=== PATIENT | female | born 1940 | race Caucasian/White ===

== ENCOUNTER → 2024-03-05 12:47 | Outpatient (REF) | payer MEDICARE, OTHER, SELFPAY | LOC: EMG 12:47 | PROVIDERS: ATTENDING PHYSICIAN Orthopaedic Surgery; FAMILY PHYSICIAN Family Medicine | DX: R20.0 Anesthesia of skin (principal); G56.02 Carpal tunnel syndrome, left upper limb | CPT/HCPCS: 95886; 95909 ==

== ENCOUNTER → 2024-03-24 13:39 | Outpatient (REF) | payer MEDICARE, OTHER, SELFPAY ==
[2024-03-24 14:52] LABS: % Basophils 0.5 % (0-2); % Eosinophils 3.1 % (0-6); % Immature Granulocytes 1.4 % (0-0.5); % Lymphocytes 29.6 % (20.5-51.1); % Monocytes 10.3 % (1.7-9.3); % Neutrophils 55.1 % (42.2-75.2); Absolute Eosinophils 0.2 10^3/uL (0-0.7); Absolute Immature Granulocytes 0.1 10^3/uL (0-0.05); Absolute Lymphocytes 2.2 10^3/uL (1.2-3.4); Absolute Monocytes 0.8 10^3/uL (0.1-0.6); Absolute Neutrophils 4.1 10^3/uL (1.4-6.5); Hematocrit 41.9 % (37.0-47.0); Mean Corp Hgb Conc. 33.4 g/dL (33.0-37.0); Mean Corpuscular Hgb 31.5 pg (27.0-31.0); Mean Corpuscular Volume 94.2 fL (81.0-99.0); Mean Platelet Volume 10.8 fL (7.4-10.4); Nucleated Red Blood Cells % 0 %; Platelet Count 237 10^3/uL (130-400); Red Blood Cell Count 4.45 10^6/uL (4.20-5.40); Red Cell Dist. Width 13.2 % (11.5-14.5); White Blood Cell Count 7.4 10^3/uL (4.8-10.8)
[2024-03-24 15:09] LABS: Blood Urea Nitrogen 21 mg/dl (7-17); Calcium 9.5 mg/dl (8.4-10.2); Carbon Dioxide 24 mmol/L (22-30); Chloride 103 mmol/L (98-107); Glucose 133 mg/dl (70-99); Potassium 4.1 mmol/L (3.5-5.1); Sodium 137 mmol/L (135-145); eGFR > 60.00
== END ==
LOC: REG 13:39
PROVIDERS: ATTENDING PHYSICIAN Orthopaedic Surgery; FAMILY PHYSICIAN Family Medicine
DX: Z01.818 Encounter for other preprocedural examination (principal)
CPT/HCPCS: 36415; 80048; 85025; 93005

== ENCOUNTER → 2024-10-29 10:45 | Outpatient (REF) | payer MEDICARE, OTHER, SELFPAY | LOC: HWRAD 10:45 | PROVIDERS: ATTENDING PHYSICIAN Student in an Organized Health Care Education/Training Program; FAMILY PHYSICIAN Family Medicine | DX: Z96.661 Presence of right artificial ankle joint (principal) | CPT/HCPCS: 73700 ==

== ENCOUNTER 2024-12-15 15:02 | Inpatient (IN) | payer MEDICARE, OTHER, SELFPAY ==
--- NOTE | 2024-11-21 15:38 | CM ---
Cm spoke with patient via phone. COnfirmed demographics. Patient lives independently. Patient stated that she does not have a history of VN, SNF or DME. Patient is active with her PCP. Patient uses [facility] for medication services.
Patient stated that she will not have assistance in the home post operatively and would prefer SNF. Patient stated that she would like to go to [facility], [facility] or [facility]. CM sent preliminary referral via [facility].
PLAN: SNF
[2024-11-28 08:53] LABS: Hematocrit 42.5 % (37.0-47.0); Hemoglobin 14.3 g/dL (12.0-16.0); Mean Corp Hgb Conc. 33.6 g/dL (33.0-37.0); Mean Corpuscular Volume 95.5 fL (81.0-99.0); Platelet Count 220 10^3/uL (130-400); Red Cell Dist. Width 13.1 % (11.5-14.5)
[2024-11-28 09:28] LABS: Blood Urea Nitrogen 18 mg/dl (7-17); Calcium 9.5 mg/dl (8.4-10.2); Carbon Dioxide 28 mmol/L (22-30); Chloride 108 mmol/L (98-107); Glucose 100 mg/dl (70-99); Potassium 4.8 mmol/L (3.5-5.1); Sodium 141 mmol/L (135-145); eGFR > 60.00
[2024-11-28 14:02] VITALS: BMI 27.9
[2024-12-08 12:18] VITALS: BMI 27.9
[2024-12-15] VITALS (11 sets, daily range): BP systolic 119–152; BP diastolic 62–85; PULSE 66; BMI 27.9
[2024-12-15] MEDS: CELEBREX 200 MG PO (15:32)
[2024-12-15] MEDS: TYLENOL 1000 MG PO (15:32)
[2024-12-15] MEDS: NORMOSOL-R/PLASMALYTE-A 1000 IV (15:44)
[2024-12-15] MEDS: TRANSDERM-SCOP 1 PATCH TRANSDERM (15:52)
[2024-12-15] MEDS: VANCOCIN 200 IV (15:53)
--- NOTE | 2024-12-15 21:15 | W.PN.UPDATE ---
Update Note
Progress Note Update
84F s/p right TAR revision, MARTA.
- admit to hospitalist
- Strict NWB RLE
- patient will likely need rehab placement
- PT/OT
- resume diet
- postop analgesia
- Ancef sx ppx 24hrs postop
- resume diet
- will reassess on AM rounds
[2024-12-15] MEDS: COMPAZINE 5 MG IV (21:28)
--- NOTE | 2024-12-15 22:16 | HPS.HSE ---
Family Physician
-
Family Physician: Marlen Abraham
Chief Complaint
-
R Ankle Pain
History of Present Illness
Patient is an 84y F with PMH significant for COPD, CVA / TIA and hypothyroidism who presents to for R ankle arthroplasty revision. Patient had initial R ankle arthroplasty about 7 years ago. Patient was seen and examined in the PACU after
surgery. No complications noted. Patient is awake if somewhat confused post-op. She denies any chest pain or dyspnea. She feels that her had is 'heavy'. She denies any recent illness, fevers / chills, cough, etc.
Medical History
Past Medical History
Past Medical History: Reports Other
Additional Past Medical History:
COPD
Hypothyroidism
Prior CVA / TIA
DJD
Neuropathy
Past Surgical History: Reports Other
Additional Past Surgical History:
Right Ankle Arthroplasty (7y ago)
Right Knee Arthroscopy
Partial Hysterectomy
Bladder Sling (x 2)
Cholecystectomy
Appendectomy
Carpal Tunnel
Pilonidal Cyst Excision
Social History
Tobacco: Former Smoker (Quit smoking 35y ago.)
Alcohol: None
Drug: None
Family History
Family History: Not pertinent
Allergies / Home Medications
Allergies reflects when Allergies were last updated in [facility].
Home Medications with original date entered in [facility]
Allergy/Medication List:
Allergies
Allergy/AdvReac Type Severity Reaction Status Date / Time
gabapentin Allergy 'brain fog' Verified 12/15/24 15:22
Penicillins Allergy Anaphylaxis Verified 12/15/24 15:22
Home Medications
Kjulqwzyl-Hdlfhdcicet-Njtyyyl 1 dose inhalation . DAILY IN AFTERNOON 12/08/24
Xxvmt-Hciu-Yarv-Pilocaine Crea 1 dose topical DAILY 12/08/24
atorvastatin 10 mg tablet 10 mg PO DAILY 12/08/24
budesonide 160 mcg-glycopyr 9 mcg-formot 4.8 mcg/actuation HFA inhaler (Breztri Aerosphere) 2 inh inhalation QAM AND QPM 12/08/24
calcium 600 mg (as carbonate)-vitamin D3 10 mcg (400 unit) tablet (Calcium 600 + D(3)) 1 tab PO DAILY 12/08/24
gemfibrozil 600 mg tablet 600 mg PO DAILY 12/08/24
ipratropium bromide 21 mcg (0.03 %) nasal spray 1 spray intranasal PRN PRN congestion 12/08/24
levothyroxine 150 mcg tablet 150 mcg PO DAILY 12/08/24
magnesium 200 mg tablet 400 mg PO DAILY 12/08/24
multivitamin 1 tab PO DAILY 12/08/24
omega 0-xvk-npe-fish oil 1,000 mg (120 mg-180 mg) capsule (Fish Oil) 1 cap PO DAILY 12/08/24
omeprazole 20 mg tablet,delayed release 20 mg PO DAILY 12/08/24
polyethylene glycol 3350 17 gram oral powder packet (Miralax) 17 g PO DAILY 12/08/24
simethicone 125 mg chewable tablet 125 mg PO DAILY 12/08/24
Review of Systems
-
History Source: Patient
A 12 point ROS was completed and negative except as noted: Yes
Constitutional: Denies Fever or Chills
Respiratory: Denies Cough or Trouble Breathing
Cardiac: Denies Chest Pain or Palpitations
Abdomen/GI: Denies Abdominal Pain, Nausea, Vomiting or Diarrhea
: Denies Dysuria or Frequency
Neurological: Reports Dizzy; Denies Headache
Physical Exam
Vital Signs
Vital Signs
Temp Pulse Resp BP Pulse Ox
96.8 F L 77 14 127/69 93
12/15/24 21:47 12/15/24 22:00 12/15/24 22:00 12/15/24 22:00 12/15/24 22:00
Physical Exam
General: Other (84y F in no acute distress - somewhat confused post-op.)
HEENT: Other (Dry MM. Neck supple.)
Respiratory: Other (Decreased at bases - otherwise clear.)
Cardiac: S1/S2 and Regular Rhythm; No Murmur
GI: Soft, Non Tender, Non Distended and Normal Bowel Sounds
Musculoskeletal: Other (RLE with bulky dressing in place.)
Neuro: Awake and Nonfocal/grossly intact
Laboratory Results
-
11/28/24 08:09
11/28/24 08:09
Impression/Plan
-
A/P: Patient is an 84y F with PMH significant for COPD, prior CVA / TIA and hypothyroidism who presents to for R ankle arthoplasty revision.
Right Ankle DJD
s/p R Ankle Revision Arthroplasty 12/15/24
- Admit for further evaluation and treatment.
- Post-op pain control per Ortho / Pod.
- PT / OT evaluation.
- NWB to the RLE.
COPD without Acute Exacerbation
- Stable. Continue usual inhalers.
- Albuterol nebs PRN.
- Incentive spirometer post-op.
- Follow for any new dyspnea, etc.
History of CVA / TIA
- ASA daily. Continue statin.
Hypothyroidism
- Continue current T4 supplementation.
DVT Prophylaxis: Full dose ASA
Code Status: Full
[2024-12-15] MEDS: ZOFRAN 4 MG IV (22:59)
--- NOTE | 2024-12-15 23:50 | PTCARENOTE ---
Pt arrived from PACU @ 2225. AAOx3, drowsy, NULATO, vss on 4L nc sating at 94%. Admission assessment complete. Pt c/o nausea, zofran administered, see MAR. Pt with Scopolamine patch behind right ear d/t hx of PONV. Pt with no sensation in R toes &
unable to wiggle toes d/t nerve block in OR, good cap refill. Pt tolerating sips of water. Pt NWB to RLE. Hard splint c/d/i and elevated. Pt voided in bedpan, see documentation. Pt oriented to room, call herron within reach, bed locked and in lowest
position. Reviewed plan of care with pt and answered all questions. Care ongoing.
[2024-12-16] VITALS (9 sets, daily range): BP systolic 102–168; BP diastolic 54–85; PULSE 73–74; O2SAT 94–95; BMI 29.8
[2024-12-16] MEDS: VANCOCIN 200 IV ×2 (01:05→14:17)
[2024-12-16] MEDS: SYNTHROID 150 MCG PO (05:13)
[2024-12-16 07:14] LABS: Hematocrit 37.7 % (37.0-47.0); Hemoglobin 12.5 g/dL (12.0-16.0); Mean Corp Hgb Conc. 33.2 g/dL (33.0-37.0); Mean Corpuscular Volume 97.4 fL (81.0-99.0); Platelet Count 208 10^3/uL (130-400); Red Cell Dist. Width 13.2 % (11.5-14.5)
[2024-12-16 07:21] LABS: Blood Urea Nitrogen 15 mg/dl (7-17); Calcium 9.3 mg/dl (8.4-10.2); Carbon Dioxide 27 mmol/L (22-30); Chloride 105 mmol/L (98-107); Estimated Creatinine Clearance 70 ml/min; Glucose 118 mg/dl (70-99); Potassium 4.8 mmol/L (3.5-5.1); Sodium 139 mmol/L (135-145); eGFR > 60.00
[2024-12-16] MEDS: SPIRIVA RESPIMAT 2.5 MCG 2 PUFF INH (07:35)
[2024-12-16] MEDS: SYMBICORT 160/4.5 MCG INHALER 2 PUFF INH ×2 (07:36→20:42)
--- NOTE | 2024-12-16 08:41 | W.PN.UPDATE ---
Update Note
Progress Note Update
84F s/p right TAR revision, MARTA. Doing well this AM, denies RLE pain (peripheral nerve block). CFT wnl, sensation at proximal tibia, calves soft and supple.
- Strict NWB RLE
- patient will likely need rehab placement
- PT/OT
- postop analgesia
- Vanco sx ppx 24hrs postop
- Patient may follow up in office for routine postop follow up (2 weeks)
--- NOTE | 2024-12-16 09:42 | CM ---
Patient seen at bedside
IA completed
s/p right TAR revision
Lives alone in [facility]
PLOF: independent with walker
DME: ashlie Chavez, ordered a rollator, CPAP, shower chair
has had [facility] home health in past, [facility] in past
Awaiting PT/OT to eval
patient would prefer [facility] SNF
PCP: Marlen Abraham
[facility]
PLAN: Anticipate SNF when stable, awaiting PT/OT to eval, CM to continue to follow for discharge planning
[2024-12-16] MEDS: LIPITOR 10 MG PO (10:04)
[2024-12-16] MEDS: PROTONIX 40 MG PO (10:04)
[2024-12-16] MEDS: ASPIRIN 325 MG PO (10:04)
[2024-12-16] MEDS: MOTRIN 600 MG PO (10:05)
--- NOTE | 2024-12-16 13:19 | W.PN.HOSP.TC ---
Today's Communication/Plan
-
Postoperative care as per surgery.
PT evaluation with placement to rehab pending bed availability
Assessment / Plan
Assessment / Plan
A/P: Patient is an 84y F with PMH significant for COPD, prior CVA / TIA and hypothyroidism who presents to for R ankle arthoplasty revision.
Right Ankle DJD
s/p R Ankle Revision Arthroplasty 12/15/24
- Admit for further evaluation and treatment.
- Post-op pain control per Ortho / Pod.
- PT / OT evaluation.
- NWB to the RLE.
COPD without Acute Exacerbation
- Stable. Continue usual inhalers.
- Albuterol nebs PRN.
- Incentive spirometer post-op.
- Follow for any new dyspnea, etc.
History of CVA / TIA
- ASA daily. Continue statin.
Hypothyroidism
- Continue current T4 supplementation.
DVT Prophylaxis: Full dose ASA
Code Status: Full
Anticipated Discharge: Within 24 hours
Subjective/Interval History
-
Date of Service: December 16, 2024
Objective Data
-
Labs:
Laboratory Results
12/16/24
05:57
WBC 11.5 H
Hgb 12.5
Hct 37.7
Plt Count 208
Sodium 139
Potassium 4.8
Chloride 105
Carbon Dioxide 27
BUN 15
Creatinine 0.7
Glucose 118 H
Calcium 9.3
Vital Signs:
Vital Signs
Temp Pulse Resp BP Pulse Ox
98.6 F 64 16 109/69 94
12/16/24 11:20 12/16/24 11:20 12/16/24 11:20 12/16/24 11:20 12/16/24 11:20
I&O
12/15/24 12/16/2425
06:59 06:59 06:59
Intake Total 1560 / 1560 480 / 480
Balance 1560 / 1560 480 / 480
Physical Exam
-
General: Well Developed and No Apparent Distress
HEENT: Normocephalic, Atraumatic and Moist Mucous Membranes
Respiratory: Clear to Auscultation
Cardiac: Regular Rhythm and S1/S2; Negative Murmur, Rub or Gallop
GI: Soft, Nontender, Nondistended and Normal Bowel Sounds; Negative Organomegaly
Rectal: Deferred by Provider
Musculoskeletal: No Clubbing, No Cyanosis and No Edema
Skin: Negative Rash
Neuro: Nonfocal/Grossly Intact
[2024-12-16] MEDS: TYLENOL 1000 MG PO (21:55)
[2024-12-17] VITALS (8 sets, daily range): BP systolic 123–143; BP diastolic 57–75; PULSE 65–80; O2SAT 94; BMI 27.9
[2024-12-17] MEDS: SYNTHROID 150 MCG PO (06:18)
[2024-12-17] MEDS: SYMBICORT 160/4.5 MCG INHALER 2 PUFF INH ×2 (08:21→19:13)
[2024-12-17] MEDS: SPIRIVA RESPIMAT 2.5 MCG 2 PUFF INH (08:21)
[2024-12-17] MEDS: ASPIRIN 325 MG PO (09:57)
[2024-12-17] MEDS: LIPITOR 10 MG PO (09:57)
[2024-12-17] MEDS: TYLENOL 1000 MG PO ×2 (09:57→20:54)
[2024-12-17] MEDS: PROTONIX 40 MG PO (09:57)
[2024-12-17] MEDS: MIRALAX 17 GRAMS PO (10:12)
--- NOTE | 2024-12-17 13:20 | W.PN.UPDATE ---
Update Note
Progress Note Update
84F s/p right TAR revision, MARTA. Doing well today, denies RLE pain. CFT wnl, sensation to level of malleoli, calves soft and supple, gross motor function intact to toes.
- Strict NWB RLE
- dressings remain c/d/i
- PT/OT
- postop analgesia
- Patient may follow up in office for routine postop follow up (2 weeks)
--- NOTE | 2024-12-17 14:25 | W.PN.HOSP.TC ---
Today's Communication/Plan
-
PT
Placement
Assessment / Plan
Assessment / Plan
A/P: Patient is an 84y F with PMH significant for COPD, prior CVA / TIA and hypothyroidism who presents to for R ankle arthoplasty revision.
Right Ankle DJD
s/p R Ankle Revision Arthroplasty 12/15/24
- Admit for further evaluation and treatment.
- Post-op pain control per Ortho / Pod.
- PT / OT evaluation.
- NWB to the RLE.
COPD without Acute Exacerbation
- Stable. Continue usual inhalers.
- Albuterol nebs PRN.
- Incentive spirometer post-op.
- Follow for any new dyspnea, etc.
History of CVA / TIA
- ASA daily. Continue statin.
Hypothyroidism
- Continue current T4 supplementation.
DVT Prophylaxis: Full dose ASA
Code Status: Full
Anticipated Discharge: Within 24 hours
Subjective/Interval History
-
Date of Service: December 17, 2024
Objective Data
-
Vital Signs:
Vital Signs
Temp Pulse Resp BP Pulse Ox
97.6 F 66 16 127/57 95
12/17/24 11:40 12/17/24 11:40 12/17/24 11:40 12/17/24 11:40 12/17/24 11:40
I&O
12/16/24 12/17/24 12/18/24
06:59 06:59 06:59
Intake Total 1560 / 1560 720 / 720
Balance 1560 / 1560 720 / 720
Physical Exam
-
General: Well Developed and No Apparent Distress
HEENT: Normocephalic, Atraumatic and Moist Mucous Membranes
Respiratory: Clear to Auscultation
Cardiac: Regular Rhythm and S1/S2; Negative Murmur, Rub or Gallop
GI: Soft, Nontender, Nondistended and Normal Bowel Sounds; Negative Organomegaly
Rectal: Deferred by Provider
Musculoskeletal: No Clubbing, No Cyanosis and No Edema
Skin: Negative Rash
Neuro: Nonfocal/Grossly Intact
--- NOTE | 2024-12-17 14:32 | CM ---
CM following re: discharge planning.
Reviewed pt's chart, met with pt.
According to MD pt is medically stable to be discharged. Pt is aware, expressed her agreement. IMM reviewed, placed on chart, pt has a copy.
PT and OT evaluations noted - SNF level of care recommended. Pt solitario franklin and she stated she ;lives at [facility] and she requested [facility]. A referral to [facility] made, spoke to family service center director
kalpesh and she confirmed they do not have a bed available today and pt is accepted for admission tomorrow.
Pt is aware, expressed her agreement and she stated she has 4 children and she will notify them of the discharge plan.
[facility] to arrange ambulance BLS for tomorrow 12/18/24. PMNC complete and left with [facility].
Per [facility] family service center director, pt must to have had script for narcotics if recommended.
[facility] nursing repprt: [phone]
Discharge instructions fax: [phone]
D/C plan: [facility] tomorrow 12/18/24.
[2024-12-18 03:00] VITALS: BP 122/64
[2024-12-18] MEDS: SYNTHROID 150 MCG PO (03:51)
[2024-12-18 05:57] VITALS: BMI 27.9
[2024-12-18 07:15] VITALS: BP 132/73
[2024-12-18] MEDS: SPIRIVA RESPIMAT 2.5 MCG 2 PUFF INH (07:53)
[2024-12-18] MEDS: SYMBICORT 160/4.5 MCG INHALER 2 PUFF INH (07:53)
[2024-12-18] MEDS: ASPIRIN 325 MG PO (08:31)
[2024-12-18] MEDS: LIPITOR 10 MG PO (08:31)
[2024-12-18] MEDS: PROTONIX 40 MG PO (08:31)
--- NOTE | 2024-12-18 09:19 | W.DS.TRANS ---
DC Summary - [facility]
-
Discharge Instructions:
Discharge Diagnosis/Procedures Right ankle revision arthroplasty 12/15/2024
COPD without exacerbation
Hypothyroidism on replacement.
History of CVA/TIA.
Diet Regular
Instructions:
Stand-Alone Forms:
Changes to Home Medications: Yes
Discharge Medications:
DC Medications w/original date entered in [employer]
Havfiwffz-Atqgegabwtr-Kcddfny 1 dose inhalation . DAILY IN AFTERNOON Lung/Breathing Issues 12/08/24
Behuy-Ttpx-Wlqy-Pilocaine Crea 1 dose topical DAILY Skin Issues 12/08/24
atorvastatin 10 mg tablet 10 mg PO DAILY High Cholesterol 12/08/24
budesonide 160 mcg-glycopyr 9 mcg-formot 4.8 mcg/actuation HFA inhaler (Breztri Aerosphere) 2 inh inhalation QAM AND QPM Lung/Breathing Issues 12/08/24
calcium 600 mg (as carbonate)-vitamin D3 10 mcg (400 unit) tablet (Calcium 600 + D(3)) 1 tab PO DAILY Supplement 12/08/24
gemfibrozil 600 mg tablet 600 mg PO DAILY Antilipemic Agent, 12/08/24
ipratropium bromide 21 mcg (0.03 %) nasal spray 1 spray intranasal PRN PRN congestion 12/08/24
levothyroxine 150 mcg tablet 150 mcg PO DAILY Thyroid 12/08/24
magnesium 200 mg tablet 400 mg PO DAILY Supplement 12/08/24
multivitamin 1 tab PO DAILY Supplement 12/08/24
omega 7-zrk-pzw-fish oil 1,000 mg (120 mg-180 mg) capsule (Fish Oil) 1 cap PO DAILY Supplement 12/08/24
omeprazole 20 mg tablet,delayed release 20 mg PO DAILY GERD 12/08/24
polyethylene glycol 3350 17 gram oral powder packet (Miralax) 17 g PO DAILY Constipation 12/08/24
simethicone 125 mg chewable tablet 125 mg PO DAILY Gastrointestinal Issue 12/08/24
acetaminophen 500 mg tablet (Tylenol Extra Strength) 1,000 mg (2 x 500 mg) PO Q6HPRN PRN mild pain #60 tabs 12/18/24
aspirin 325 mg tablet 325 mg PO DAILY #28 tabs 12/18/24
oxycodone 5 mg tablet 5 mg PO Q4HPRN PRN severe pain #10 tabs 12/18/24
Home Medication Changes
Analgesic regimen with Tylenol and oxycodone.
Aspirin for DVT prophylaxis
Pending Results: No
--- NOTE | 2024-12-18 09:35 | CM ---
CM following re: discharge planning.
Reviewed pt's chart, met with pt.
Discharge order noted. Pt is aware, expressed her agreement. IMM reviewed yesterday, placed on chart, pt has a copy.
CM spoke to [facility] veterans' coordinator Gregorio and she confirmed that pt is accepted for admission today and early discharge time requested.
arranged ambulance BLS for 11:00 a.m pecan picker time. PMNC complete and left with .
Pt requested early lunch tray. RN is aware
Per [facility] academic director, pt must to have had script for narcotics if recommended.
[facility] nursing report: [phone]
Discharge instructions fax: [phone]
D/C plan: [facility]
[2024-12-18 10:25] VITALS: BP 136/78
== END 2024-12-18 11:08 | DRG 469 ==
LOC: 2 SOUTH 15:02
PROVIDERS: Hospitalist; ADMITTING PHYSICIAN Student in an Organized Health Care Education/Training Program; ATTENDING PHYSICIAN Internal Medicine; FAMILY PHYSICIAN Family Medicine
PROC: 0SPF0JZ Removal of Synthetic Substitute from Right Ankle Joint, Open Approach (ICD-10-PCS; 2024-12-15)
PROC: 5A09357 Assistance with Respiratory Ventilation, Less than 24 Consecutive Hours, Continuous Positive Airway Pressure (ICD-10-PCS; 2024-12-15)
PROC: 0SRF0JZ Replacement of Right Ankle Joint with Synthetic Substitute, Open Approach (ICD-10-PCS; 2024-12-15)
DX: T84.098A Other mechanical complication of other internal joint prosthesis, initial encounter (principal); Y79.2 Prosthetic and other implants, materials and accessory orthopedic devices associated with adverse incidents; Z96.661 Presence of right artificial ankle joint; M89.9 Disorder of bone, unspecified; M19.071 Primary osteoarthritis, right ankle and foot; J44.9 Chronic obstructive pulmonary disease, unspecified; Z86.73 Personal history of transient ischemic attack (TIA), and cerebral infarction without residual deficits; E03.9 Hypothyroidism, unspecified; Z87.891 Personal history of nicotine dependence; Z88.0 Allergy status to penicillin; G62.9 Polyneuropathy, unspecified; Z79.82 Long term (current) use of aspirin; Z90.711 Acquired absence of uterus with remaining cervical stump
CPT/HCPCS: 36415; 73610; 76000; 80048; 85027; 93005; 94640; 94660; 97110; 97163; 97167; 97530